=== PATIENT | female | born 1980 | race Caucasian/White ===

== ENCOUNTER 2016-12-30 21:34 | Emergency (ER) | payer OTHER ==
[2016-12-30 21:45] VITALS: BP 119/82
[2016-12-30] MEDS ORDERED: Sodium Chloride 0.9% 500 ML IV ONE (21:57)
[2016-12-30] MEDS ORDERED: Ondansetron 4 MG/2 ML SDV IVPUSH ONE (21:58)
--- NOTE | 2016-12-30 22:23 | EDM.PDOC ---
ED HPI - General Chief Complaint: Gastrointestinal Problem Stated Complaint: VOMITING, HEADACHE 8WKS PG Time Seen by Provider: 12/30/16 21:41 Source of Information: Reports: Patient, Family (), RN notes reviewed History Limitations: Reports: No limitations - History of Present Illness INITIAL COMMENTS - FREE TEXT/NARRATIVE: The patient states that she ate weeks is , however, her LMP was 2016, giving her an estimated gestational age of 6 weeks 6 days by dates. . She has not yet seen her Medical Records Tech, Dr. Goldman, for this . She states that she developed a headache, nausea, and vomiting today. She has not suffered similar symptoms during this , nor did she suffer similar symptoms with prior pregnancies. The headache is a throbbing sensation felt in the left occipital area, at the base of the head. She denies any visual changes. No photophobia or phonophobia. No neurologic symptoms, such as tingling, numbness, or weakness. She states that this headache is similar to prior headaches that she occasionally gets. - Related Data Allergies/ADRs: Allergies Allergy/AdvReac Type Severity Reaction Status Date / Time azithromycin Allergy Rash Verified 12/30/16 21:53 Sulfa (Sulfonamide Allergy Rash Verified 12/30/16 21:53 Antibiotics) Home Meds: Home Meds Levothyroxine Sodium [Synthroid] 1 tab PO DAILY 09/14/16 [History] Doxylamine/Pyridoxine HCl [Diclegis Dr 10-10 mg Tablet] 1 - 2 tab PO BEDTIME PRN #10 tablet. 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: (x 4) Endocrine/Metabolic History: Reports: Hypothyroidism - Past Surgical History HEENT Surgical History: Reports: Oral surgery ([place] teeth extraction) GI Surgical History: Reports: Appendectomy Female Surgical History: Reports: section (x 3) Social & Family History - Tobacco Use Smoking Status *Q: Never Smoker Second Hand Smoke Exposure: No - Caffeine Use Caffeine Use: Reports: None - Alcohol Use Alcohol Use History: Yes Days Per Week of Alcohol Use: 0 (occasional) Date/Time of Last Drink Comment: Not while Alcohol Use Frequency: Socially - Recreational Drug Use Recreational Drug Use: No - Living Situation & Occupation Living situation: Reports: , with spouse, with family (3 kids) 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) ED ROS GENERAL - Review of Systems Review Of Systems: See Below Constitutional: Reports: no symptoms HEENT: Reports: No symptoms Respiratory: Reports: No Symptoms Cardiovascular: Reports: No symptoms Endocrine: Reports: no symptoms GI/Abdominal: Reports: No symptoms : Reports: no symptoms Musculoskeletal: Reports: no symptoms Skin: Reports: no symptoms Neurological: Reports: No Symptoms Psychiatric: Reports: No symptoms Hematologic/Lymphatic: Reports: no symptoms Immunologic: Reports: no symptoms ED EXAM - Physical Exam Exam: See Below Exam Limited By: No limitations General Appearance: alert, WD/WN, no apparent distress Eye Exam: bilateral eye: EOMI, normal inspection, PERRL Ears: normal external exam, normal canal, hearing grossly normal, normal TMs Nose: normal inspection, normal mucosa, no blood Throat/Mouth: Normal inspection, Normal lips, Normal teeth, Normal gums, Normal oropharynx, Normal voice, No airway compromise Head: atraumatic, normocephalic, other (Reproducible tenderness to palpation of the left occipital area, at the insertion of the paraspinous muscle) Neck: normal inspection, supple, non-tender, full range of motion. No: lymphadenopathy (L), lymphadenopathy (R) Respiratory/Chest: no respiratory distress, lungs clear, normal breath sounds, no accessory muscle use Cardiovascular: normal peripheral pulses, regular rate, rhythm, no edema, no gallop, no JVD, no murmur, no rub GI/Abdominal: normal bowel sounds, soft, non tender, no organomegaly, no distention, no abnormal bruit, no mass Rectal Exam: Deferred Back Exam: normal inspection, full range of motion, NT Extremities: normal inspection, normal range of motion, no pedal edema, normal capillary refill Neurological: alert, oriented, CN II-XII intact, normal cognition, no motor/ sensory deficits Psychiatric: normal affect Skin Exam: Warm, Dry, Intact, Normal color, No rash Lymphatic: no adenopathy Course - Vital Signs Last Recorded V/S: Last Vital Signs Temp 37.4 C 12/30/16 21:39 Pulse 88 12/30/16 21:39 Resp 18 12/30/16 21:39 BP 119/82 12/30/16 21:39 Pulse Ox 100 12/30/16 21:39 - Orders/Labs/Meds Orders: Active Orders 24 hr Category Date Time Status HCG QUANTITATIVE,SERUM [CHEM] Stat Lab 12/30/16 22:05 Received Labs: Laboratory Tests 12/30/16 12/30/16 Range/Units 22:05 22:05 WBC 9.89 (3.98-10.04) K/mm3 RBC 4.49 (3.98-5.22) M/mm3 Hgb 13.7 (11.2-15.7) gm/L Hct 40.6 (34.1-44.9) % MCV 90.4 (79.4-94.8) fl MCH 30.5 (25.6-32.2) pg MCHC 33.7 (32.2-35.5) g/dl RDW Std Deviation 47.1 H (36.4-46.3) fL Plt Count 248 (182-369) K/mm3 MPV 9.1 L (9.4-12.3) fl Neutrophils % (Manual) 70 H (40-60) % Band Neutrophils % 1 (0-10) % Lymphocytes % (Manual) 24 (20-40) % Atypical Lymphs % 0 % Monocytes % (Manual) 2 (2-10) % Eosinophils % (Manual) 3 (0.7-5.8) % Basophils % (Manual) 0 L (0.1-1.2) Toxic Granulation Few Platelet Estimate Adequate RBC Morph Comment Normal Sodium 136 (136-145) mEq/L Potassium 3.7 (3.5-5.1) mEq/L Chloride 101 (98-107) mEq/L Carbon Dioxide 25 (21-32) mEq/L Anion Gap 13.7 (5-15) BUN 7 (7-18) mg/dL Creatinine 0.6 (0.55-1.02) mg/dL Est Cr Clr Drug Dosing 113.52 mL/min Estimated GFR (MDRD) > 60 (>60) mL/min BUN/Creatinine Ratio 11.7 L (14-18) Glucose 96 (74-106) mg/dL Calcium 9.1 (8.5-10.1) mg/dL Magnesium 1.7 L (1.8-2.4) mg/dl Total Bilirubin 0.6 (0.2-1.0) mg/dL AST 14 L (15-37) U/L ALT 25 (14-59) U/L Alkaline Phosphatase 56 (46-116) U/L Total Protein 7.8 (6.4-8.2) g/dl Albumin 4.3 (3.4-5.0) g/dl Globulin 3.5 gm/dL Albumin/Globulin Ratio 1.2 (1-2) Meds: Medications Discontinued Medications Generic Name Dose Route Start Last Admin Trade Name Jyothi PRN Reason Stop Dose Admin Sodium Chloride 500 mls @ 1,000 mls/hr 12/30/16 21:57 12/30/16 22:10 Normal Saline IV 12/30/16 22:26 1,000 mls/hr .BOLUS ONE Administration Ondansetron HCl 4 mg 12/30/16 21:58 12/30/16 22:07 Zofran IVPUSH 12/30/16 21:59 4 mg ONETIME ONE Administration - Re-Assessments/Exams Free Text/Narrative Re-Assessment/Exam: 12/30/16 23:03 The patient states that she is feeling much better after IV fluid and Zofran. I will discharge her home with an e-prescription for diclegis, and the patient can followup with her Medical Records Tech or PCP as needed. Departure - Departure Time of Disposition: 23:03 Disposition: Home, Self-Care 01 Condition: good Clinical Impression: Nausea & vomiting, , Tension headache Referrals: Genia Peralta NP [Primary Care Provider] - Pia Goldman MD [Ordering Only Provider] - Forms: ED Department Discharge Additional Instructions: You were seen in the emergency room for a headache and vomiting. By dates, you are 6 weeks 6 days . Workup in the ER included a CBC, CMP, magnesium level, and quantitative hCG. Your entire workup is normal. You received relief of symptoms with IV fluid and the anti-nausea medicine Zofran. You have been prescribed the anti-nausea medicine Diclegis. Starting tomorrow evening, 12/31/2016, take one tablet at bedtime, as needed for nausea/vomiting. If your symptoms persist, increase your dose to one tablet in the morning and one tablet at bedtime. You may take Tylenol as needed for discomfort. Followup with your Medical Records Tech, Dr. Goldman, at the next available appointment. If any other problems, please do not hesitate to return to the ER. - My Orders Last 24 Hours: My Active Orders 12/30/16 22:05 HCG QUANTITATIVE,SERUM [CHEM] Stat - Assessment/Plan Last 24 Hours: My Active Orders 12/30/16 22:05 HCG QUANTITATIVE,SERUM [CHEM] Stat
== END 2016-12-30 23:22 | disposition home or self-care (01) ==
LOC: JD.ED 21:34
DX: O21.9 Vomiting of pregnancy, unspecified (principal); O99.351 Diseases of the nervous system complicating pregnancy, first trimester; G44.209 Tension-type headache, unspecified, not intractable; O99.281 Endocrine, nutritional and metabolic diseases complicating pregnancy, first trimester; E03.9 Hypothyroidism, unspecified; Z90.49 Acquired absence of other specified parts of digestive tract; Z79.899 Other long term (current) drug therapy; Z88.1 Allergy status to other antibiotic agents; Z88.2 Allergy status to sulfonamides; Z3A.01 Less than 8 weeks gestation of pregnancy
CPT/HCPCS: 36415; 80053; 83735; 84702; 85025; 96361; 96374; 99283; J2405; J7040; 99284

== ENCOUNTER 2021-09-08 07:56 | Day surgery (SDC) | payer OTHER ==
--- NOTE | 2021-09-08 07:23 | PCM.PREANE ---
Preanesthetic Assessment - Procedure Proposed Procedure: Total vaginal hysterectomy with bilateral salpigectomy, possible total abdominal hysterectomy with bilateral salpingectomy - Anesthesia/Transfusion/Family Hx Anesthesia History: Prior Anesthesia Reaction Type of Anesthesia Reaction: Excessive Nausea/Vomiting Family History of Anesthesia Reaction: No Transfusion History: No Prior Transfusion(s) Intubation History: Unknown - Review of Systems General: No Symptoms Pulmonary: No Symptoms Cardiovascular: No Symptoms Gastrointestinal: No Symptoms Neurological: No Symptoms Other: Reports: Thyroid Problems, Anxiety - Physical Assessment NPO Status Date: 09/07/21 NPO Status Time: 19:00 Vital Signs: 116/75 HR 84 94% RA 97.8 RR 16 Height: 1.63 m Weight: 58 kg ASA Class: 2 Mental Status: Alert & Oriented x3 Airway Class: Mallampati = 1 Dentition: Reports: Implants (permanent retainer on bottom), Caries Thyro-Mental Finger Breadths: 3 Mouth Opening Finger Breadths: 3 ROM/Head Extension: Full Lungs: Clear to Auscultation, Normal Respiratory Effort Cardiovascular: Regular Rate, Regular Rhythm, No Murmurs - Lab Values: Labs reviewed and okay to proceed - Allergies Allergies/Adverse Reactions: Allergies Allergy/AdvReac Type Severity Reaction Status Date / Time azithromycin Allergy Rash Verified 09/07/21 16:50 Sulfa (Sulfonamide Allergy Rash Verified 09/07/21 16:50 Antibiotics) - Acknowledgements Anesthesia Type Planned: General Anesthesia Pt an Appropriate Candidate for the Planned Anesthesia: Yes Alternatives and Risks of Anesthesia Discussed w Pt/Guardian: Yes Pt/Guardian Understands and Agrees with Anesthesia Plan: Yes PreAnesthesia Questionnaire HEENT History: Reports: None Cardiovascular History: Reports: Other (See Below) Other Cardiovascular History: sinus tachycardia Respiratory History: Reports: None Gastrointestinal History: Reports: GERD Other Gastrointestinal History: abdominal pain Genitourinary History: Reports: None DIRECTOR STAGE History: Reports: , Other (See Below) Other OB/BYN History: irregular menses, menorrhagia Musculoskeletal History: Reports: None Neurological History: Reports: Vertigo, Other (See Below) Other Neuro History: fatigue; motion sickness Psychiatric History: Reports: Anxiety Endocrine/Metabolic History: Reports: Hypothyroidism Hematologic History: Reports: Iron Deficiency Immunologic History: Reports: None Oncologic (Cancer) History: Reports: None Dermatologic History: Reports: Other (See Below) Other Dermatologic History: cold sores, rhytides, s/p botox injections - Infectious Disease History Infectious Disease History: Reports: Other (See Below) (recurrent cold sores) - Past Surgical History Head Surgeries/Procedures: Reports: None HEENT Surgical History: Reports: Oral Surgery Cardiovascular Surgical History: Reports: None Respiratory Surgical History: Reports: None GI Surgical History: Reports: Appendectomy Female Surgical History: Reports: Section Male Surgical History: Reports: None Endocrine Surgical History: Reports: None Neurological Surgical History: Reports: None Musculoskeletal Surgical History: Reports: None Oncologic Surgical History: Reports: None - SUBSTANCE USE Tobacco Use Status *Q: Never Tobacco User Second Hand Smoke Exposure: No Days Per Week of Alcohol Use: 0 Number of Drinks Per Day: 0 Total Drinks Per Week: 0 Recreational Drug Use History: No - HOME MEDS Home Medications: Home Meds Levothyroxine Sodium [Synthroid] 75 mcg PO DAILY 09/14/16 [History] Cyclobenzaprine [Flexeril] 10 mg PO TID PRN 09/07/21 [History] Esomeprazole Magnesium [Nexium] 20 mg PO DAILY 09/07/21 [History] Hydrocortisone/Acetic Acid [Hydrocortison-Acetic Acid Soln] 3 drop EARBOTH QID PRN 09/07/21 [History] LORazepam [Lorazepam] 0.5 mg PO BID PRN 09/07/21 [History] Multivitamin 1 tab PO DAILY 09/07/21 [History] Scopolamine 1 patch TOP Q3D PRN 09/07/21 [History] valACYclovir HCl [valACYclovir] 2 g PO ASDIRECTED PRN 09/07/21 [History] - CURRENT (IN HOUSE) MEDS Current Meds: Current Medications Lactated Ringer's (Ringers, Lactated) 1,000 mls @ 125 mls/hr IV ASDIRECTED MONIKA Stop: 09/08/21 23:00 Lidocaine/Sodium Bicarbonate (Lidocaine 1%/Sod Bicarbonate In Ns 8.4% 1 Ml Syringe) 0.25 ml IDERM ONETIME PRN PRN Reason: Prior to IV Start Stop: 09/08/21 23:00 Scopolamine (Scopolamine 1.5 Mg Transdermal Patch) 1.5 mg TRDERM ONETIME PRN PRN Reason: Motion sickness Stop: 09/08/21 23:00 Sodium Chloride (Sodium Chloride 0.9% 10 Ml Syringe) 10 ml FLUSH ASDIRECTED PRN PRN Reason: Keep Vein Open Stop: 09/08/21 23:00
[~2021-09-08 07:56] MED LIST: Lactated Ringers 1,000 ML IV SCH; Lidocaine 1%/Sod Bicarbonate in NS 8.4% 1 ML Syringe IDERM PRN; Scopolamine 1.5 MG Transdermal Patch TRDERM PRN; Sodium Chloride 0.9% 10 ML Syringe FLUSH PRN
[2021-09-08 08:01] VITALS: BP 116/75; PULSE 84
[2021-09-08] MEDS ORDERED: Midazolam 1 MG/ML 2 ML SDV ONE (08:15)
[2021-09-08] MEDS ORDERED: Propofol 200 MG/20 ML SDV ONE ×2 (08:15→08:16)
[2021-09-08] MEDS ORDERED: fentaNYL 250 MCG/5 ML SDV ONE (08:15)
[2021-09-08] MEDS ORDERED: diphenhydrAMINE 50 MG/ML SDV ONE (08:16)
[2021-09-08] MEDS ORDERED: Dexamethasone 4 MG/ML 5 ML MDV ONE (08:16)
[2021-09-08] MEDS ORDERED: Ondansetron 4 MG/2 ML SDV ONE (08:16)
[2021-09-08] MEDS ORDERED: ceFAZolin 1 GM Vial ONE (08:16)
[2021-09-08] MEDS ORDERED: Rocuronium 50 MG/5 ML Vial ONE (08:16)
[2021-09-08] MEDS ORDERED: Ketorolac 30 MG/ML SDV ONE (08:16)
[2021-09-08] MEDS ORDERED: Sodium Chloride 0.9% 0 ML ONE ×2 (08:17→08:29)
[2021-09-08] MEDS ORDERED: Dexmedetomidine 200 MCG/2 ML SDV ONE (08:17)
[2021-09-08] MEDS ORDERED: Lidocaine 1% with EPINEPHrine 1:100,000 20 ML MDV ONE (08:29)
[2021-09-08] MEDS ORDERED: Bupivacaine 0.5% 30 ML SDV ONE (08:29)
== END 2021-09-08 09:15 ==
LOC: JD.SDS 07:56
PROVIDERS: ATTEND Obstetrics & Gynecology
DX: N92.1 Excessive and frequent menstruation with irregular cycle (principal); Z53.09 Procedure and treatment not carried out because of other contraindication; K21.9 Gastro-esophageal reflux disease without esophagitis; F41.9 Anxiety disorder, unspecified; E03.9 Hypothyroidism, unspecified; Z88.1 Allergy status to other antibiotic agents; Z88.2 Allergy status to sulfonamides; Z79.899 Other long term (current) drug therapy; Z90.49 Acquired absence of other specified parts of digestive tract; Z98.890 Other specified postprocedural states; Z79.890 Hormone replacement therapy
CPT/HCPCS: 81003; 81025; J0690; J1100; J1200; J1885; J2250; J2405; J2704; J3010; J3490; J7120